=== PATIENT | male | born 1990 | race Caucasian/White ===

== ENCOUNTER 2022-12-14 17:02 | Inpatient (IN) | payer OTHER ==
[2022-12-14 17:34] VITALS: BMI 23.7
[2022-12-14] MEDS ORDERED: NALOXONE HCL 0.4 MG/ML VIAL IM PRN (17:56)
[2022-12-14] MEDS ORDERED: guaiFENesin 600 MG TABLET.ER (FP) PO PRN (17:56)
[2022-12-14] MEDS ORDERED: DICYCLOMINE HCL 10 MG CAPSULE PO PRN (17:56)
[2022-12-14] MEDS ORDERED: IBUPROFEN 400 MG TABLET (FP) PO PRN (17:56)
[2022-12-14] MEDS ORDERED: MAG HYDROX/AL HYDROX/SIMETH 30 ML UNIT-DOSE CUP PO PRN (17:56)
[2022-12-14] MEDS ORDERED: P-EPHED 60MG/TRIPROLIDI 2.5MG TABLET PO PRN (17:56)
[2022-12-14] MEDS ORDERED: LOPERAMIDE HCL 2 MG CAPSULE PO PRN (17:56)
[2022-12-14] MEDS ORDERED: BISMUTH SUBSALICYLATE 524 MG/30 ML PO PRN (17:56)
[2022-12-14] MEDS ORDERED: ONDANSETRON *ODT* 4 MG TABLET SL PRN (17:56)
[2022-12-14] MEDS ORDERED: NALOXONE HCL (KLOXXADO) 8 MG SPRAY NS PRN (17:56)
[2022-12-14] MEDS ORDERED: ACETAMINOPHEN 325 MG TABLET (FP) PO PRN ×2 (17:56)
[2022-12-14] MEDS ORDERED: BENZONATATE 200 MG CAPSULE PO PRN (17:56)
[2022-12-14] MEDS ORDERED: MAGNESIUM HYDROX 2400MG/30ML ORAL SUSPENSION 30 ML CUP PO PRN (17:56)
[2022-12-14] MEDS ORDERED: BENZOCAINE/MENTHOL (CHLORASEPTIC ) LOZENGE MM PRN (17:56)
[2022-12-14] MEDS ORDERED: POLYETHYLENE GLYCOL (HEALTHYLAX) 3350 17 GM PACKET PO PRN (17:56)
[2022-12-14] MEDS ORDERED: methaDONE HCL 10 MG TABLET (FOR DETOX USE ONLY) ONE (18:47)
[2022-12-14] MEDS ORDERED: methaDONE HCL 10 MG TABLET (FOR DETOX USE ONLY) PO ONE (19:00)
[2022-12-14] MEDS: NICOTINE POLACRILEX 2 MG GUM BUC PRN (20:48)
[2022-12-14] MEDS: THIAMINE HCL 100 MG TABLET (FP) PO SCH ×2 (22:28→22:29)
[2022-12-14] MEDS: MELATONIN 5 MG TABLETS PO SCH ×2 (22:28→22:29)
[2022-12-14] MEDS: METHOCARBAMOL 500 MG TABLET PO PRN (22:29)
[2022-12-15] MEDS: NICOTINE POLACRILEX 2 MG GUM BUC PRN ×4 (07:42→18:59)
[2022-12-15] MEDS: PRENATAL VITAMINS W/ FOLIC ACID TABLET (FP) PO SCH (10:14)
[2022-12-15] MEDS: NICOTINE 14 MG/24 HOURS TOPICAL PATCH TD SCH (10:14)
[2022-12-15 10:50] LABS: HEMATOCRIT 34.9 % (35.4-49); HEMOGLOBIN 11.7 GM/dL (11.7-16.9); MCH 28.5 pg (25.7-33.7); MCHC 33.6 g/dl (32.0-35.9); MEAN CELL VOLUME 84.8 fl (80-96); MEAN PLT VOLUME 9.3 fl (7.5-11.1); PLATELET COUNT 283 10^3/uL (134-434); RBC 4.11 M/mm3 (4.00-5.60); RDW 12.7 % (11.9-15.9); WHITE BLOOD COUNT 7.5 K/mm3 (4.0-10.0)
[2022-12-15 10:57] LABS: POTASSIUM 4.2 mmol/L (3.5-5.1)
[2022-12-15 11:01] LABS: CALCIUM 9.4 mg/dL (8.5-10.1)
[2022-12-15 11:02] LABS: ALBUMIN 3.5 g/dl (3.4-5.0); BLOOD UREA NITROGEN 5.7 mg/dL (7-18)
[2022-12-15 11:05] LABS: CREATININE 0.8 mg/dL (0.55-1.3)
[2022-12-15 11:07] LABS: BILIRUBIN,TOTAL 0.6 mg/dL (0.2-1)
[2022-12-15 11:08] LABS: TOT PROT 6.9 g/dl (6.4-8.2)
[2022-12-15] MEDS: METHOCARBAMOL 500 MG TABLET PO PRN ×2 (13:12→20:20)
[2022-12-15] MEDS: hydrOXYzine PAMOATE 25 MG CAPSULE (FP) PO PRN ×2 (13:12→21:11)
[2022-12-15] MEDS ORDERED: methaDONE HCL 10 MG TABLET (FOR DETOX USE ONLY) PO ONE (16:34)
[2022-12-15] MEDS: cloNIDine HCL 0.1 MG TABLET PO PRN (18:59)
[2022-12-15] MEDS: MELATONIN 5 MG TABLETS PO SCH (21:11)
[2022-12-15] MEDS: THIAMINE HCL 100 MG TABLET (FP) PO SCH (21:11)
[2022-12-15] MEDS: IBUPROFEN 600 MG TABLET (FP) PO PRN (23:26)
[2022-12-16] MEDS: NICOTINE POLACRILEX 2 MG GUM BUC PRN ×6 (02:24→22:12)
[2022-12-16] MEDS: METHOCARBAMOL 500 MG TABLET PO PRN ×3 (05:37→22:11)
[2022-12-16] MEDS: cloNIDine HCL 0.1 MG TABLET PO PRN ×2 (05:37→10:10)
[2022-12-16] MEDS: hydrOXYzine PAMOATE 25 MG CAPSULE (FP) PO PRN ×2 (07:09→15:07)
[2022-12-16] MEDS ORDERED: methaDONE HCL 10 MG TABLET (FOR DETOX USE ONLY) PO ONE ×2 (10:00)
[2022-12-16] MEDS: NICOTINE 14 MG/24 HOURS TOPICAL PATCH TD SCH (10:09)
[2022-12-16] MEDS: PRENATAL VITAMINS W/ FOLIC ACID TABLET (FP) PO SCH (10:09)
[2022-12-16] MEDS: IBUPROFEN 600 MG TABLET (FP) PO PRN (17:59)
[2022-12-16] MEDS: THIAMINE HCL 100 MG TABLET (FP) PO SCH (22:10)
[2022-12-16] MEDS: MELATONIN 5 MG TABLETS PO SCH (22:12)
[2022-12-17] MEDS: METHOCARBAMOL 500 MG TABLET PO PRN (05:25)
[2022-12-17] MEDS: hydrOXYzine PAMOATE 25 MG CAPSULE (FP) PO PRN (05:25)
[2022-12-17] MEDS: NICOTINE 14 MG/24 HOURS TOPICAL PATCH TD SCH (10:05)
[2022-12-17] MEDS: PRENATAL VITAMINS W/ FOLIC ACID TABLET (FP) PO SCH (10:06)
[2022-12-17 12:57] VITALS: BP 140/82; PULSE 68; RESP 18; TEMP 97.9
[2022-12-18] MEDS ORDERED: methaDONE HCL 10 MG TABLET (FOR DETOX USE ONLY) PO ONE (06:00)
== END 2022-12-17 14:16 | disposition left against medical advice (07) | DRG 770 ==
LOC: YASAS 17:02 → Y3N 18:26
PROVIDERS: ADMIT Allergy & Immunology; ATTEND Surgery
PROC: HZ2ZZZZ Detoxification Services for Substance Abuse Treatment (ICD-10-PCS; principal; 2022-12-14)
DX: F11.23 Opioid dependence with withdrawal (principal); F12.20 Cannabis dependence, uncomplicated; F17.210 Nicotine dependence, cigarettes, uncomplicated; Z28.310 Unvaccinated for COVID-19; Z28.9 Immunization not carried out for unspecified reason
CPT/HCPCS: 36415; 80053; 85027; 86780; 87811; C9803-CS; U0003; U0005